=== PATIENT | female | born 1955 | race Caucasian/White ===

== ENCOUNTER 2020-07-19 10:34 | Day surgery (SDC) | payer BC ==
[~2020-07-19] VITALS: Ht 160 cm; Wt 77.6 kg
[~2020-07-19 10:34] MED LIST: ADV500INH INH; ALLE12TA31 PO; BUPR300T92 PO; DEXI60CA2 PO; DILT240C28 PO; ECOT81TA5 PO; LEVO112T2 PO; OPIU1TIN6 PO; PARO37.54 PO; SALMDISK INH; VANCOMYCIN HCL 1,000 MG, VIAL MATE ADAPTER 1 EACH in NS 250 ML IV ONE; VITMTA PO; ZINC1TAB2 PO; [UNRECOGNIZED DRUG - OTHER] PO
[2020-07-19] MEDS ORDERED: VANCOMYCIN 1000MG/20ML VIAL As Ordered ONE (11:26)
[2020-07-19] MEDS ORDERED: BACITRACIN PWD 50,000 UNITS VIAL As Ordered ONE (12:58)
[2020-07-19] MEDS ORDERED: LIDOCAINE 2% MDV 20ML VIAL As Ordered ONE (12:58)
[2020-07-19] MEDS ORDERED: NEOSPORIN GU IRRIG 20 ML VIAL As Ordered ONE (12:58)
[2020-07-19] MEDS ORDERED: BUPIVACAINE HCL 0.5% 30 ML VIAL As Ordered ONE (12:58)
[2020-07-19] MEDS ORDERED: dexameTHASONE 4 MG/ML 1ML VIAL (J1100 PER 1MG) As Ordered ONE (12:58)
[2020-07-19] MEDS ORDERED: ACETAMINOPHEN 1000MG 100ML IV BTL (OFIRMEV) (J0131 PER 10MG) As Ordered ONE (14:21)
[2020-07-19] MEDS ORDERED: MIDAZOLAM INJ 2MG/2ML VIAL (J2250 PER 1MG) As Ordered ONE (14:21)
[2020-07-19] MEDS ORDERED: propofoL 200 MG/20 ML VIAL As Ordered ONE ×3 (14:21→14:43)
[2020-07-19] MEDS ORDERED: LIDOCAINE 2% 100MG/5ML SDV (FOR ANES.) As Ordered ONE (14:21)
--- NOTE | 2020-07-19 15:23 | REP ---
INDICATION: BUNIONECTOMY RIGHT FOOT COMPARISON: None. TECHNIQUE: AP, lateral and oblique views of the right foot. FINDINGS: Status post procedure involving the 1st metatarsal bone. Diffuse postsurgical changes appreciated. IMPRESSION: Postsurgical changes.. <Electronically signed by Manjit Musa > 07/19/20 1790
[2020-07-19 15:45] VITALS: BP 116/57
--- NOTE | 2020-07-20 09:19 | RO ---
OPERATIVE NOTE DATE OF OPERATION: 07/19/2020 PREOPERATIVE DIAGNOSIS: Hallux valgus deformity, right foot. POSTOPERATIVE DIAGNOSIS: Hallux valgus deformity, right foot. PROCEDURE: [place] bunionectomy with internal screw fixation, right foot. SURGEON: ZACKARY Garcia ASSISTANT: None. ANESTHESIA: Local MAC. IRRIGATION: Dilute bacitracin, neomycin, and polymyxin B solution. HEMOSTASIS: Ankle pneumatic tourniquet at 200 mmHg for 33 minutes. HARDWARE UTILIZED: Arthrex headless 3.0 x 22 mm screw. IMPLANTABLES: DBX 2.5 mL bone putty. DESCRIPTION OF PROCEDURE: On 07/19/2020, this 64-year-old white female was taken from a hospital room to the operating room and placed on the operating room table in the supine position. Following induction of IV anesthesia and local regional anesthesia, the right lower extremity was prepped and draped was prepped and draped in the usual aseptic manner. Attention was directed to the patient's right foot and the following procedure was performed: [place] bunionectomy with internal screw fixation 3.0 mm x 2 mm x 1. Attention was directed to the patient's right foot where a 6 cm incision was placed over the first metatarsophalangeal joint lateral to the extensor tendon. The incision was deepened to the subcutaneous tissues and all coursing venous tributaries were identified, underscored, clamped, cut, ligated, and electrocoagulated as necessary. An L-shaped capsulotomy was then performed over the first metatarsophalangeal joint. This was then freed, developing into view the medial eminence of the first metatarsal, which was osteotomized from distal to proximal [id number]. Attention was then directed into the first intermetatarsal space, where dissection was carried down to the level of the fibular sesamoid where there conjoined tendon was released. Attention was then directed to the medial surface of the first metatarsal where a V-shaped osteotomy was performed. Upon completion of this osteotomy, the capital fragment was transposed approximately 40% of the width of the shaft of the first metatarsal and fixated with a 3.0 x 22 mm screw. The screw did not penetrate to the inferior cartilage on direct visualization. Redundant cortical spike was then osteotomized from dorsal to plantar [id number]. This exposed a large cyst in the shaft of the first metatarsal. Utilizing a curette, the shaft cyst was completely debrided. This was filled with 2.5 DBX bone and the other margin we used the redundant cortical spike. We shaped and then compressed into the cyst forming a trap door. The wound was flushed with copiously amounts of dilute bacitracin, neomycin, and polymyxin B solution. Attention was directed towards closure where the inverted L capsulotomy was repaired holding the toe in a straight position. This was repaired with 2-0 Monocryl in a simple interrupted-type fashion. Subcutaneous tissues were coapted and maintained using 4-0 Monocryl in a simple interrupted-type fashion. Skin incisions were coapted and maintained using 5-0 Monocryl in a continuous subcuticular type fashion. Attention was directed toward bandage and a sterile compressive bandage was applied consisting of Adaptic, 4 x 4s, 4x4 splints, Edie, Kerlix, and Coban. The ankle pneumatic tourniquet was deflated and spontaneous capillary filling was noted in digits one through five of the patient's right foot. The patient appeared to have tolerated the procedure well and was taken from the OR to the recovery room to be further monitored by the anesthesia department. Postoperative instructions will be given upon discharge.
== END 2020-07-19 15:52 | disposition home or self-care (01) ==
LOC: M SDC 10:34
PROVIDERS: ATTEND Podiatrist
DX: M20.11 Hallux valgus (acquired), right foot (principal); M79.671 Pain in right foot; I10 Essential (primary) hypertension; J45.20 Mild intermittent asthma, uncomplicated; E03.9 Hypothyroidism, unspecified; E11.9 Type 2 diabetes mellitus without complications; I48.91 Unspecified atrial fibrillation; Z79.899 Other long term (current) drug therapy; Z91.040 Latex allergy status; Z98.84 Bariatric surgery status; K76.0 Fatty (change of) liver, not elsewhere classified; Z88.0 Allergy status to penicillin; G47.30 Sleep apnea, unspecified
CPT/HCPCS: 28296; 73630; 76000; 88300; C1713; C1762; J0131; J1100; J2250; J3370

== ENCOUNTER 2020-08-02 11:35 | Day surgery (SDC) | payer BC ==
[~2020-08-02] VITALS: Ht 160 cm; Wt 77.7 kg
[~2020-08-02 11:35] MED LIST changes: +ALLE180T33 PO; +ESTR62CR PV; +IRON65TA2 PO; +LIDOCAINE 1% MDV 20ML VIAL SQ PRN; +LR 1,000 ML IV ONE; +SM CTAB PO; +VANCOMYCIN 1000MG/20ML VIAL As Ordered ONE
[2020-08-02] MEDS ORDERED: VITA500T41 PO (12:07)
[2020-08-02] MEDS ORDERED: ONDANSETRON 4MG/2ML VIAL As Ordered ONE (13:24)
[2020-08-02] MEDS ORDERED: KETOROLAC 60MG 2ML VIAL As Ordered ONE (13:24)
[2020-08-02] MEDS ORDERED: propofoL 200 MG/20 ML VIAL As Ordered ONE ×2 (13:24→14:04)
[2020-08-02] MEDS ORDERED: LIDOCAINE 2% 100MG/5ML SDV (FOR ANES.) As Ordered ONE (13:24)
[2020-08-02] MEDS ORDERED: dexameTHASONE 4 MG/ML 1ML VIAL (J1100 PER 1MG) As Ordered ONE ×2 (13:24→13:53)
[2020-08-02] MEDS ORDERED: fentaNYL 100 MCG/2 ML INJECTION (J3010) As Ordered ONE (13:24)
[2020-08-02] MEDS ORDERED: MIDAZOLAM INJ 2MG/2ML VIAL (J2250 PER 1MG) As Ordered ONE (13:25)
[2020-08-02] MEDS ORDERED: LIDOCAINE 2% MDV 20ML VIAL As Ordered ONE (13:53)
[2020-08-02] MEDS ORDERED: BACITRACIN PWD 50,000 UNITS VIAL As Ordered ONE (13:54)
[2020-08-02] MEDS ORDERED: NEOSPORIN GU IRRIG 20 ML VIAL As Ordered ONE (13:54)
[2020-08-02] MEDS ORDERED: BUPIVACAINE HCL 0.5% 30 ML VIAL As Ordered ONE (13:54)
[2020-08-02] MEDS ORDERED: ACETAMINOPHEN 1000MG 100ML IV BTL (OFIRMEV) (J0131 PER 10MG) As Ordered ONE (14:51)
[2020-08-02] MEDS ORDERED: ePHEDrine SULFATE 25 MG/5 ML(5MG/ML) SYRINGE As Ordered ONE (15:06)
[2020-08-02] MEDS ORDERED: oxyCODONE 5MG TAB PO PRN (16:15)
[2020-08-02] MEDS ORDERED: LR 1,000 ML IV SCH (16:15)
[2020-08-02] MEDS ORDERED: ONDANSETRON 4MG/2ML VIAL IV PRN (16:15)
[2020-08-02 16:30] VITALS: BP 127/62
--- NOTE | 2020-08-03 12:17 | RO ---
OPERATIVE NOTE DATE OF OPERATION: 08/02/2020 PREOPERATIVE DIAGNOSIS: Displaced 1st metatarsal osteotomy right foot. POSTOPERATIVE DIAGNOSIS: Displaced 1st metatarsal osteotomy right foot. PROCEDURE: ORIF 1st metatarsal right foot. SURGEON: Spencer Orantes DPM ROOM SERVICE ASSOCIATE: None ANESTHESIA: Local, MAC. IRRIGATION: Dilute Bacitracin, Neomycin, Polymyxin B solution. HEMOSTASIS: Ankle pneumatic tourniquet at 250 mmHg for 47 minutes. HARDWARE UTILIZED: 6-hole T-plate and 0.045 Avel wire. DESCRIPTION OF PROCEDURE: On 08/02/2020 this 64-year-old white female was taken from her hospital room to the operating room, placed on the operating table in supine position. Following induction of IV sedation and local regional anesthesia right lower extremity was prepped and draped in usual aseptic manner. Attention was directed to the patient's right foot. There was noted to be a previous incision. This was utilized and extended approximately 2 cm in proximal direction. Dissection was carried down to the level of the capsule where linear capsulotomy was performed over the 1st metatarsophalangeal joint. Dissection was carried down to a headless screw which was then removed. The joystick K-wire 0.045 was then placed across the metatarsal head and utilizing C-arm imagery the capital fragment was reduced straightening the laterally positioned articular cartilage into a straight position. This was then temporarily fixated with 1.1 mm Avel wire, driven through the phalanx, across the metatarsal head and down the shaft of the 1st metatarsal. Intraoperative C-arm images revealed reduced capital fragment with the articular cartilage pointing in normal position approximately 8 degrees deviated. T-plate was then tacked onto the 1st metatarsal and intraoperative C-arm image was utilized to reveal appropriate position. Good position was noted therefore locking and nonlocking screws were utilized. Screw sizes were 2.4 x 12 times 2 and 2.4 x 16 and 2.4 x 24. The osteotomy was noted to be stable. However, the Avel wire across the hallux into the metatarsal head was in good position and felt that this would provide extra stability of the fragment. Therefore, the wire was bent and protective cap was placed on the distal end of the wire. The wound was flushed with copious amounts of dilute Bacitracin, Neomycin and Polymyxin B solution. Attention was directed toward closure where capsular structures were coapted and maintained utilizing 2-0 Monocryl in simple interrupted type fashion, subcutaneous tissues were coapted and maintained using 4-0 Monocryl in simple interrupted type fashion, skin edges were coapted and maintained utilizing 3-0 nylon in simple interrupted type fashion. Attention was then directed towards bandaging. Postop compressive bandage was applied consisting of 4 x 4s, Edie and Kerlix. Ankle pneumatic tourniquet was deflated; instantaneous capillary filling time was noted digits 1 through 5 of the patient's right foot. A well molded Fiberglass boot cast was then applied to the patient's extremity. The patient apparently tolerated the surgical procedure well and was taken from the OR to the recovery room for further monitoring by the anesthesia department; postoperative instructions given upon discharge. SANTOS
--- NOTE | 2020-08-03 19:41 | REP ---
INDICATION: post op ORIF RT foot 1st metatarsal COMPARISON: None. TECHNIQUE: AP, lateral, bilateral oblique views right foot. FINDINGS: Patient is status post surgical intervention involving the 1st toe. Postsurgical changes noted. Evaluation is limited by overlying cast material. IMPRESSION: Postsurgical changes involving the 1st toe.. <Electronically signed by Manjit Musa > 08/03/201936
== END 2020-08-02 16:45 | disposition home or self-care (01) ==
LOC: M SDC 11:35
PROVIDERS: ATTEND Podiatrist
DX: T84.213A Breakdown (mechanical) of internal fixation device of bones of foot and toes, initial encounter (principal); M20.11 Hallux valgus (acquired), right foot; M79.671 Pain in right foot; I48.91 Unspecified atrial fibrillation; E11.9 Type 2 diabetes mellitus without complications; E03.9 Hypothyroidism, unspecified; K21.9 Gastro-esophageal reflux disease without esophagitis; J45.909 Unspecified asthma, uncomplicated; G47.30 Sleep apnea, unspecified; Z98.84 Bariatric surgery status; Z88.0 Allergy status to penicillin; Z79.899 Other long term (current) drug therapy; Z91.040 Latex allergy status
CPT/HCPCS: 28306; 73630; C1713; J0131; J1100; J2250; J2405; J3010; J3370

== ENCOUNTER 2020-12-06 06:13 | Day surgery (SDC) | payer BC ==
[~2020-12-06] VITALS: Ht 157.5 cm; Wt 82.0 kg
[~2020-12-06 06:13] MED LIST changes: +ELIQ5TAB PO; -VANCOMYCIN 1000MG/20ML VIAL As Ordered ONE; +VITA500T41 PO
[2020-12-06] MEDS ORDERED: VANCOMYCIN 1000MG/20ML VIAL As Ordered ONE (06:17)
[2020-12-06] MEDS ORDERED: BUPIVACAINE HCL 0.5% 30 ML VIAL As Ordered ONE (06:51)
[2020-12-06] MEDS ORDERED: NEOSPORIN GU IRRIG 20 ML VIAL As Ordered ONE (06:51)
[2020-12-06] MEDS ORDERED: dexameTHASONE 4 MG/ML 1ML VIAL (J1100 PER 1MG) As Ordered ONE ×2 (06:51→08:13)
[2020-12-06] MEDS ORDERED: LIDOCAINE 2% MDV 20ML VIAL As Ordered ONE (06:51)
[2020-12-06] MEDS ORDERED: MIDAZOLAM INJ 2MG/2ML VIAL (J2250 PER 1MG) As Ordered ONE (07:07)
[2020-12-06] MEDS ORDERED: propofoL 500 MG/50 ML VIAL As Ordered ONE (07:08)
[2020-12-06] MEDS ORDERED: fentaNYL 100 MCG/2 ML INJECTION (J3010) As Ordered ONE (07:08)
[2020-12-06] MEDS ORDERED: ONDANSETRON 4MG/2ML VIAL As Ordered ONE (08:13)
[2020-12-06] MEDS ORDERED: METOCLOPRAMIDE INJ 10MG/2ML VIAL (J2765 PER 1) IV PRN (09:05)
[2020-12-06] MEDS ORDERED: LR 1,000 ML IV SCH (09:05)
[2020-12-06] MEDS ORDERED: fentaNYL 100 MCG/2 ML INJECTION (J3010) IV PRN (09:05)
[2020-12-06] MEDS ORDERED: ONDANSETRON 4MG/2ML VIAL IV PRN (09:05)
[2020-12-06] MEDS ORDERED: PERCOCET 5MG/325MG TAB PO PRN (09:05)
--- NOTE | 2020-12-06 09:20 | REP ---
INDICATION: post op bunionectomy. Will call when pt in [facility]. COMPARISON: None. TECHNIQUE: Four views of the left foot are obtained through overlying dressing and cast material. Postop imaging. FINDINGS: Four views of the left foot demonstrate 1st metatarsal bunion repair with a metallic screw in place in the distal 1st metatarsal osteotomy. There is Achilles calcaneal spurring. Mild diffuse osteopenia is noted.. No other abnormality.. . IMPRESSION: Postoperative changes 1st metatarsal. X-rays through overlying cast material.. <Electronically signed by Francisco Garcia > 12/06/20 0988
[2020-12-06 09:59] VITALS: BP 134/60
--- NOTE | 2020-12-06 13:27 | RO ---
OPERATIVE NOTE DATE OF OPERATION: 12/06/2020 PREOPERATIVE DIAGNOSIS: Hallux valgus with metatarsus primus varus deformity, left foot. POSTOPERATIVE DIAGNOSIS: Hallux valgus with metatarsus primus varus deformity, left foot. PROCEDURES PERFORMED: [place] bunionectomy, left foot. SURGEON: Spencer Orantes DPM PUTTY MIXER AND APPLIER: None ANESTHESIA: local MAC HARDWARE UTILIZED: Arthrex headless screw 3.0 x 20 mm x1. HEMOSTASIS: Ankle pneumatic tourniquet at 250 mmHg for 40 minutes. ANESTHESIA: Local MAC. IRRIGATION UTILIZED: Dilute bacitracin, neomycin and polymyxin B solution. DESCRIPTION OF PROCEDURE: On 12/06/20, this 65-year-old white female was taken from her hospital room to the operating room and placed on the operating table in supine position. Following the induction of IV sedation and local and regional anesthesia, the left lower extremity was prepped and draped in the usual aseptic manner. Attention was directed to the patient's left foot. There was noted to be a moderate hallux valgus deformity. At this time, a 6 cm incision was placed over the first metatarsophalangeal joint lateral to the extensor tendon. The incision was deepened through subcutaneous tissues and all crossing venous tributaries were identified, underscored, clamped, cut, ligated or electrocoagulated as necessary. The capsule and periosteal structures were dissected free dorsally, medially and laterally, creating a capsular periosteal type envelope. The hypertrophied medial eminence was osteotomized from distal to proximal [id number]. This was extirpated from the wound. Dissection was carried in the first intermetatarsal space and dissection was carried down to the level of the fibular sesamoid where the conjoined tendon was sharply dissected free from the fibular sesamoid. Attention was directed to the medial surface of the foot where an inverted L-type osteotomy was performed with a long plantar cut in the distal metaphysis exiting proximal to the sesamoidal apparatus and a wedge of bone was created with two diverging cuts creating a wedge, the first following the articular cartilage, the second being approximately perpendicular to the long axis of the first metatarsal and a 6 mm wedge of bone was removed. This was then completed. The capital fragment was rotated and transposed about 40% of the width of the shaft of the first metatarsal. Any more displacement caused it considerable instability of the fragment. Therefore, it was fixated with a 3.0 x 20 mm screw. The osteotomy was noted to be stable in all three cardinal planes with no gapping noted at the osteotomy. Redundant cortical spike was then osteotomized from dorsal to plantar [id number]. The wound was flushed with copious amounts of bacitracin, neomycin and polymyxin B solution. Capsular structures were closed with 2-0 Monocryl in a simple interrupted type fashion. Subcutaneous tissues were closed utilizing 4-0 Monocryl and the skin was coapted and maintained utilizing 5-0 Monocryl in continuous subcuticular type fashion. This was reinforced with Steri-Strips. Following the completion of the surgical procedure, 4 mg of dexamethasone sodium phosphate was instilled proximal to the surgical site. Attention was directed toward bandaging where a sterile compressive bandage was applied consisting of Adaptic, 4x4s, 4x4 splints, Edie, Kerlix followed by a boot, fiberglass cast with the foot held at a right angle to the lower leg. The patient apparently tolerated the surgical procedure well and was taken from the OR to the recovery room for further monitoring by the anesthesia department. Postoperative instructions were given upon discharge. SANTOS
== END 2020-12-06 09:42 | disposition home or self-care (01) ==
LOC: M SDC 06:13
PROVIDERS: ATTEND Podiatrist
DX: M20.12 Hallux valgus (acquired), left foot (principal); I11.9 Hypertensive heart disease without heart failure; J45.20 Mild intermittent asthma, uncomplicated; M19.90 Unspecified osteoarthritis, unspecified site; I48.91 Unspecified atrial fibrillation; E03.9 Hypothyroidism, unspecified; Z98.84 Bariatric surgery status; R12 Heartburn; Z87.09 Personal history of other diseases of the respiratory system; Z79.899 Other long term (current) drug therapy; Z79.51 Long term (current) use of inhaled steroids; Z79.01 Long term (current) use of anticoagulants
CPT/HCPCS: 28296; 73630; 88300; C1781; J1100; J2250; J2405; J3010; J3370

== ENCOUNTER 2021-10-25 11:22 | Emergency (ER) | payer BC ==
[~2021-10-25] VITALS: Ht 157.5 cm; Wt 83.2 kg
[~2021-10-25 11:22] MED LIST changes: -LIDOCAINE 1% MDV 20ML VIAL SQ PRN; -LR 1,000 ML IV ONE; -PARO37.54 PO; +PARO37.55 PO; -VANCOMYCIN HCL 1,000 MG, VIAL MATE ADAPTER 1 EACH in NS 250 ML IV ONE
[2021-10-25] MEDS ORDERED: FLUT22IN (11:36)
[2021-10-25] MEDS ORDERED: LEVO175T2 (11:36)
[2021-10-25] MEDS ORDERED: PROPARACAINE 0.5% OPHTH SOL 15ML OS ONE (12:15)
[2021-10-25 13:20] VITALS: BP 125/62
== END 2021-10-25 13:25 | disposition home or self-care (01) ==
LOC: M ED 11:22
DX: H43.392 Other vitreous opacities, left eye (principal); J45.909 Unspecified asthma, uncomplicated; E03.9 Hypothyroidism, unspecified; I48.91 Unspecified atrial fibrillation; G47.33 Obstructive sleep apnea (adult) (pediatric); K20.0 Eosinophilic esophagitis; Z79.899 Other long term (current) drug therapy; Z79.01 Long term (current) use of anticoagulants; Z88.0 Allergy status to penicillin; Z91.018 Allergy to other foods; Z91.040 Latex allergy status; Z98.84 Bariatric surgery status